=== PATIENT | male | born 1995 | race Caucasian/White ===

== ENCOUNTER 2017-10-17 14:09 | Emergency (ER) | payer OTHER ==
[~2017-10-17] VITALS: Ht 182.9 cm; Wt 79.4 kg
[2017-10-17] MEDS ORDERED: IBUPROFEN 600600 M1 PO (14:47)
[2017-10-17 15:00] VITALS: BP 119/77
== END 2017-10-17 15:00 | disposition home or self-care (01) ==
LOC: M.ERS 14:09
DX: S93.491A Sprain of other ligament of right ankle, initial encounter (principal); X58.XXXA Exposure to other specified factors, initial encounter; Y93.89 Activity, other specified; Y92.89 Other specified places as the place of occurrence of the external cause; Y99.8 Other external cause status